=== PATIENT | male | born 1995 | race Two or more races ===

== ENCOUNTER 2022-08-07 11:50 | Outpatient (CLI) | payer BC ==
[2022-08-07 14:32] LABS: Bilirubin Neg (Negative); Blood, Urine Negative (Negative); Clarity Clear (Clear); Glucose, Urine (Dipstick) Normal (Negative); Ketone, Urine Negative (Negative); Leukocyte Negative (Negative); Nitrite Negative (Negative); Protein, Urine (Dipstick) Negative (Neg-Trace); Specific Gravity, Urine 1.015 (1.005-1.030); Urobilinogen Normal mg/dL (Less than 2)
[2022-08-07 15:06] LABS: Bacteria/HPF None Seen HPF (None Seen); RBC/HPF 0-3 HPF (0-3); Squamous Epithelial 0-3 HPF (0-3); WBC/HPF 0-3 HPF (0-3)
== END 2022-08-07 11:51 | disposition home or self-care (01) ==
LOC: LABBT 11:50
PROVIDERS: ATTEND Urology
DX: Z01.812 Encounter for preprocedural laboratory examination (principal); N20.1 Calculus of ureter
CPT/HCPCS: 81001; 87086

== ENCOUNTER 2022-08-15 13:53 | Emergency (ER) | payer BC ==
[2022-08-15] MEDS ORDERED: Morphine 4 MG/ML VIAL ONE (14:41)
[2022-08-15] MEDS ORDERED: Ketorolac Tromethamine 30 MG/ML VIAL ONE (14:41)
[2022-08-15] MEDS ORDERED: Ondansetron PF 4 MG/2 ML Vial ONE (14:41)
[2022-08-15] MEDS ORDERED: Acetaminophen 500 MG TAB ONE (14:41)
[2022-08-15 15:36] LABS: Bilirubin Negative (Negative); Blood, Urine 3+ (Negative); Clarity Clear (Clear); Glucose, Urine (Dipstick) Normal (Negative); Ketone, Urine 10 mg/dL (Negative); Leukocyte Negative Leu/uL (Negative); Nitrite Negative (Negative); Protein, Urine (Dipstick) Negative (Neg-Trace); RBC/HPF Greater than 50 HPF (0-3); Specific Gravity, Urine 1.013 (1.002-1.036); Squamous Epithelial None Seen HPF (0-3); Urobilinogen Normal mg/dL (Less than 2)
[2022-08-15 15:37] LABS: Bacteria/HPF 1+ HPF (None Seen)
== END 2022-08-15 16:41 | disposition home or self-care (01) ==
LOC: ERS 13:53
DX: N20.0 Calculus of kidney (principal); R33.9 Retention of urine, unspecified; Z95.0 Presence of cardiac pacemaker
CPT/HCPCS: 51702; 81003; 81015; 87086; 96374; 96375; J1885; J2270; J2405

== ENCOUNTER 2022-08-28 09:47 | Day surgery (SDC) | payer BC ==
[2022-08-27 13:15] VITALS: BMI 26.5
[2022-08-28] MEDS ORDERED: Iopamidol 0 ML ONE (11:39)
[2022-08-28] MEDS ORDERED: fentaNYL PF 100 MCG/2 ML SYRINGE ONE (11:42)
[2022-08-28] MEDS ORDERED: Ioversol 68 % 50 ML VIAL ONE (11:45)
[2022-08-28] MEDS ORDERED: Midazolam HCl 2 mg/2 ml Vial ONE (11:49)
[2022-08-28] MEDS ORDERED: Levofloxacin 500 mg/D5W 100 ml Premix Bag ONE (11:50)
[2022-08-28] MEDS ORDERED: Dexamethasone 20 MG/5 ML VIAL ONE (12:05)
[2022-08-28] MEDS ORDERED: Ondansetron PF 4 MG/2 ML Vial ONE (12:05)
[2022-08-28] MEDS ORDERED: PROPOFOL 200 MG/20 ML VIAL ONE (12:05)
[2022-08-28] MEDS ORDERED: Meperidine HCl/PF 25 MG/ML VIAL ONE (13:20)
[2022-08-28] MEDS ORDERED: FENTANYL 50 MCG/ML 1 ML VIAL ONE ×2 (13:27→14:11)
[2022-08-28] MEDS ORDERED: Phenazopyridine HCl 100 MG TAB ONE (14:02)
[2022-08-28] MEDS ORDERED: Oxybutynin 5 MG TAB ONE (14:02)
== END 2022-08-28 16:25 | disposition home or self-care (01) ==
LOC: SDC 09:47
PROVIDERS: ATTEND Urology
PROC: 0T788ZZ Dilation of Bilateral Ureters, Via Natural or Artificial Opening Endoscopic (ICD-10-PCS; principal; 2022-08-28)
PROC: 0T788DZ Dilation of Bilateral Ureters with Intraluminal Device, Via Natural or Artificial Opening Endoscopic (ICD-10-PCS; principal; 2022-08-28)
PROC: 0TC38ZZ Extirpation of Matter from Right Kidney Pelvis, Via Natural or Artificial Opening Endoscopic (ICD-10-PCS; principal; 2022-08-28)
DX: N20.0 Calculus of kidney (principal); N13.5 Crossing vessel and stricture of ureter without hydronephrosis; Z79.899 Other long term (current) drug therapy; Z91.013 Allergy to seafood
CPT/HCPCS: 74420; 82365; 88300; C1713; C1769; C2617; J1100; J1956; J2175; J2250; J2405; J2704; J3010; Q9967

== ENCOUNTER 2022-09-09 11:17 | Outpatient (CLI) | payer BC ==
[2022-09-09 13:52] LABS: Bilirubin Neg (Negative); Blood, Urine 250 (Negative); Clarity Clear (Clear); Glucose, Urine (Dipstick) Normal (Negative); Ketone, Urine Negative (Negative); Leukocyte 100 (Negative); Nitrite Negative (Negative); Protein, Urine (Dipstick) 30 mg/dl (Neg-Trace); Specific Gravity, Urine 1.005 (1.005-1.030); Urobilinogen Normal mg/dL (Less than 2)
[2022-09-09 14:33] LABS: Bacteria/HPF 2+ HPF (None Seen); Mucous/LPF 1+ LPF (<2+); Sperm/HPF Rare HPF (None Seen); Squamous Epithelial 0-3 HPF (0-3); Transitional Epithelial 0-3 HPF (None Seen)
== END 2022-09-09 11:18 | disposition home or self-care (01) ==
LOC: LABBT 11:17
PROVIDERS: ATTEND Urology
DX: Z01.812 Encounter for preprocedural laboratory examination (principal)
CPT/HCPCS: 81001; 87086

== ENCOUNTER 2022-09-18 06:06 | Day surgery (SDC) | payer BC ==
[2022-09-17 10:58] VITALS: BMI 26.5
[2022-09-18] MEDS ORDERED: fentaNYL PF 100 MCG/2 ML SYRINGE ONE (06:11)
[2022-09-18] MEDS ORDERED: Lidocaine 1% MPF 2 ML VIAL ONE (06:28)
[2022-09-18] MEDS ORDERED: Levofloxacin 500 mg/D5W 100 ml Premix Bag ONE ×2 (06:28→07:30)
[2022-09-18] MEDS ORDERED: Iopamidol 30 ML ONE (06:34)
[2022-09-18] MEDS ORDERED: Midazolam HCl 2 mg/2 ml Vial ONE (07:32)
[2022-09-18] MEDS ORDERED: Dexamethasone 20 MG/5 ML VIAL ONE (07:51)
[2022-09-18] MEDS ORDERED: Ketorolac Tromethamine 30 MG/ML VIAL ONE (07:51)
[2022-09-18] MEDS ORDERED: PROPOFOL 200 MG/20 ML VIAL ONE (07:51)
[2022-09-18] MEDS ORDERED: Ondansetron PF 4 MG/2 ML Vial ONE (07:51)
[2022-09-18] MEDS ORDERED: Meperidine HCl/PF 25 MG/ML VIAL ONE (08:50)
[2022-09-18] MEDS ORDERED: Phenazopyridine HCl 100 MG TAB ONE (09:23)
== END 2022-09-18 11:00 | disposition home or self-care (01) ==
LOC: SDC 06:06
PROVIDERS: ATTEND Urology
PROC: 0TC48ZZ Extirpation of Matter from Left Kidney Pelvis, Via Natural or Artificial Opening Endoscopic (ICD-10-PCS; principal; 2022-09-18)
PROC: BT14ZZZ Fluoroscopy of Kidneys, Ureters and Bladder (ICD-10-PCS; principal; 2022-09-18)
PROC: 0T778DZ Dilation of Left Ureter with Intraluminal Device, Via Natural or Artificial Opening Endoscopic (ICD-10-PCS; principal; 2022-09-18)
DX: N20.0 Calculus of kidney (principal); N13.5 Crossing vessel and stricture of ureter without hydronephrosis; R33.9 Retention of urine, unspecified; Z79.899 Other long term (current) drug therapy; Z91.013 Allergy to seafood
CPT/HCPCS: 82365; 88300; C1713; C1769; C2617; J1100; J1885; J1956; J2175; J2250; J2405; J2704; Q9967